=== PATIENT | male | born 1980 | race Caucasian/White ===

== ENCOUNTER 2018-01-10 16:19 | Emergency (ER) | payer BC ==
--- NOTE | 2018-01-10 16:31 | EDM.PDOC ---
<Maura Skinner - Last Filed: 01/10/18 21:18> ED HPI GENERAL MEDICAL PROBLEM - General Stated Complaint: CHEST PAINS Time Seen by Provider: 01/10/18 16:25 - History of Present Illness INITIAL COMMENTS - FREE TEXT/NARRATIVE: Please note this patient was seen prior to my arrival to the emergency department and I had no active involvement in his care. Disposition was planned and nursing proceeded appropriately per Dr. Acosta's instructions - Related Data Allergies Allergy/AdvReac Type Severity Reaction Status Date / Time No Known Allergies Allergy Verified 01/10/18 16:33 Home Meds: Home Meds Albuterol [Ventolin HFA] 2 puff INH Q4HR PRN #1 inhaler 01/10/18 [Rx] Aspirin 81 mg PO DAILY 01/10/18 [History] Azithromycin [Zithromax] 250 mg PO DAILY #6 tab 01/10/18 [Rx] Nitroglycerin 0.4 mg SL ASDIRECTED PRN #1 bottle 01/10/18 [Rx] Course - Vital Signs Last Recorded V/S: Last Vital Signs Temp 98 F 01/10/18 19:48 Pulse 100 01/10/18 19:48 Resp 17 01/10/18 19:48 BP 128/96 H 01/10/18 19:48 Pulse Ox 94 L 01/10/18 19:48 - Orders/Labs/Meds Orders: Active Orders 24 hr Category Date Time Status Cardiac Monitoring [RC] . DIRECTED Care 01/10/18 17:04 Active EKG Documentation Completion [RC] STAT Care 01/10/18 16:45 Active Pulse Oximetry [RC] ASDIRECTED Care 01/10/18 17:04 Active RT Aerosol Therapy [RC] ASDIRECTED Care 01/10/18 18:12 Active RT Aerosol Therapy [RC] ASDIRECTED Care 01/10/18 18:52 Active Chest 1V Frontal [CR] Stat Exams 01/10/18 17:22 Taken Saline Lock Insert [OM.PC] Stat Oth 01/10/18 16:34 Ordered Labs: Laboratory Tests 01/10/18 01/10/18 Range/Units 16:51 16:51 WBC 10.49 (4.0-11.0) K/uL RBC 5.24 (4.50-5.90) M/uL Hgb 15.7 (13.0-17.0) g/dL Hct 45.8 (38.0-50.0) % MCV 87.4 (80.0-98.0) fL MCH 30.0 (27.0-32.0) pg MCHC 34.3 (31.0-37.0) g/dL RDW Std Deviation 40.7 (28.0-62.0) fl RDW Coeff of Nyla 13 (11.0-15.0) % Plt Count 267 (150-400) K/uL MPV 11.30 (7.40-12.00) fL Neut % (Auto) 64.2 (48.0-80.0) % Lymph % (Auto) 24.5 (16.0-40.0) % [place] % (Auto) 9.2 (0.0-15.0) % Eos % (Auto) 1.7 (0.0-7.0) % Baso % (Auto) 0.4 (0.0-1.5) % Neut # (Auto) 6.7 H (1.4-5.7) K/uL Lymph # (Auto) 2.6 H (0.6-2.4) K/uL [place] # (Auto) 1.0 H (0.0-0.8) K/uL Eos # (Auto) 0.2 (0.0-0.7) K/uL Baso # (Auto) 0.0 (0.0-0.1) K/uL Nucleated RBC % 0.0 /100WBC Nucleated RBCs # 0 K/uL Sodium 137 (136-148) mmol/L Potassium 4.1 (3.5-5.1) mmol/L Chloride 104 (98-107) mmol/L Carbon Dioxide 21.8 (21.0-32.0) mmol/L BUN 11 (7.0-18.0) mg/dL Creatinine 1.1 (0.8-1.3) mg/dL Est Cr Clr Drug Dosing 94.02 mL/min Estimated GFR (MDRD) > 60.0 ml/min Glucose 194 H (74-106) mg/dL Calcium 8.9 (8.5-10.1) mg/dL Total Bilirubin 0.2 (0.2-1.0) mg/dL AST 23 (15-37) IU/L ALT 70 H (14-63) IU/L Alkaline Phosphatase 65 (46-116) U/L Troponin I < 0.050 (0.000-0.056) ng/mL Total Protein 7.3 (6.4-8.2) g/dL Albumin 4.0 (3.4-5.0) g/dL Globulin 3.3 (2.0-3.5) g/dL Albumin/Globulin Ratio 1.2 L (1.3-2.8) Meds: Medications Discontinued Medications Generic Name Dose Route Start Last Admin Trade Name Freq PRN Reason Stop Dose Admin Albuterol/Ipratropium 3 ml 01/10/18 18:12 01/10/18 18:18 Duoneb 3.0-0.5 Mg/3 Ml [facility] 01/10/18 18:13 3 ml ONETIME ONE Administration Albuterol/Ipratropium 3 ml 01/10/18 18:51 01/10/18 19:11 Duoneb 3.0-0.5 Mg/3 Ml [facility] 01/10/18 18:52 3 ml ONETIME ONE Administration Aspirin 324 mg 01/10/18 17:04 01/10/18 17:20 Aspirin PO 01/10/18 17:05 324 mg ONETIME ONE Administration Insulin Human Regular 6 unit 01/10/18 17:57 01/10/18 18:12 Novolin R IVPUSH 01/10/18 17:58 6 units ONETIME ONE Administration Protocol Nitroglycerin 0.4 mg 01/10/18 17:04 01/10/18 17:25 Nitrostat SL 0.4 mg Q5M PRN Administration Chest Pain Sodium Chloride 10 ml 01/10/18 16:34 01/10/18 17:21 Saline Flush FLUSH 10 ml ASDIRECTED PRN Administration Keep Vein Open Sodium Chloride 2.5 ml 01/10/18 16:34 01/10/18 17:21 Saline Flush FLUSH 2.5 ml ASDIRECTED PRN Administration Keep Vein Open Departure - Departure Time of Disposition: 19:31 Disposition: Home, Self-Care 01 Clinical Impression: Diabetes mellitus, new onset Acute bronchitis Qualifiers: Bronchitis organism: unspecified organism Qualified Code(s): J20.9 - Acute bronchitis, unspecified Chest pain Qualifiers: Chest pain type: unspecified Qualified Code(s): R07.9 - Chest pain, unspecified - Discharge Information Prescriptions: Albuterol [Ventolin HFA] 2 puff INH Q4HR PRN #1 inhaler PRN Reason: Shortness Of Breath Azithromycin [Zithromax] 250 mg PO DAILY #6 tab Nitroglycerin 0.4 mg SL ASDIRECTED PRN #1 bottle PRN Reason: Chest Pain Instructions: Acute Bronchitis, Adult, [id number], Nonspecific Chest Pain, [id number], Type 2 Diabetes Mellitus, Self Care, Adult, [id number] Referrals: PCP,None [Primary Care Provider] - Forms: ED Department Discharge Additional Instructions: The following information is given to patients seen in the emergency department who are being discharged to home. This information is to outline your options for follow-up care. We provide all patients seen in our emergency department with a follow-up referral. The need for follow-up, as well as the timing and circumstances, are variable depending upon the specifics of your emergency department visit. If you don't have a primary care physician on staff, we will provide you with a referral. We always advise you to contact your personal physician following an emergency department visit to inform them of the circumstance of the visit and for follow-up with them and/or the need for any referrals to a consulting specialist. The emergency department will also refer you to a specialist when appropriate. This referral assures that you have the opportunity for follow-up care with a specialist. All of these measure are taken in an effort to provide you with optimal care, which includes your follow-up. Under all circumstances we always encourage you to contact your private physician who remains a resource for coordinating your care. When calling for follow-up care, please make the office aware that this follow-up is from your recent emergency room visit. If for any reason you are refused follow-up, please contact the [facility] Emergency Department at and asked to speak to the emergency department charge nurse. Take Zithromax as directed, use nitroglycerin for chest pain as directed, take a baby aspirin daily follow up with primary care for further workup of diabetes. [facility] [address] [place] [id number] - My Orders Last 24 Hours: My Active Orders 01/10/18 16:34 Saline Lock Insert [OM.PC] Stat 01/10/18 16:45 EKG Documentation Completion [RC] STAT 01/10/18 17:04 Cardiac Monitoring [RC] . DIRECTED Pulse Oximetry [RC] ASDIRECTED 01/10/18 17:22 Chest 1V Frontal [CR] Stat 01/10/18 18:12 RT Aerosol Therapy [RC] ASDIRECTED 01/10/18 18:52 RT Aerosol Therapy [RC] ASDIRECTED - Assessment/Plan Last 24 Hours: My Active Orders 01/10/18 16:34 Saline Lock Insert [OM.PC] Stat 01/10/18 16:45 EKG Documentation Completion [RC] STAT 01/10/18 17:04 Cardiac Monitoring [RC] . DIRECTED Pulse Oximetry [RC] ASDIRECTED 01/10/18 17:22 Chest 1V Frontal [CR] Stat 01/10/18 18:12 RT Aerosol Therapy [RC] ASDIRECTED 01/10/18 18:52 RT Aerosol Therapy [RC] ASDIRECTED <Kourtney Acosta - Last Filed: 01/11/18 08:53> ED HPI GENERAL MEDICAL PROBLEM - General Source of Information: Reports: Patient History Limitations: Reports: No Limitations - History of Present Illness INITIAL COMMENTS - FREE TEXT/NARRATIVE: History of present illness: []Patient's had about a week of coughing, sweats, shortness of breath and chest tightness throughout his whole chest. Chest tightness has been constant for over a day Review of systems: As per history of present illness and below otherwise all systems reviewed and negative. Past medical history: As per history of present illness and as reviewed below otherwise noncontributory. Surgical history: As per history of present illness and as reviewed below otherwise noncontributory. Social history: No reported history of drug or alcohol abuse. Family history: As per history of present illness and as reviewed below otherwise noncontributory. Physical exam: General: Well developed, well nourished in NAD HEENT: Atraumatic, normocephalic, pupils reactive, negative for conjunctival pallor or scleral icterus, mucous membranes moist, throat clear, neck supple, nontender, trachea midline. Lungs: Clear to auscultation, breath sounds equal bilaterally, chest nontender. Heart: S1S2, regular, negative for clicks, rubs, or JVD. Abdomen: Soft, nondistended, nontender. Negative for masses or hepatosplenomegaly. Negative for costovertebral tenderness. Pelvis: Stable nontender. Genitourinary: Deferred. Rectal: Deferred. Extremities: Atraumatic, negative for cords or calf pain. Neurovascular unremarkable. Neuro: Awake, alert, oriented. Cranial nerves II through XII unremarkable. Cerebellum unremarkable. Motor and sensory unremarkable throughout. Exam nonfocal. Diagnostics: []CBC normal chemistry normal except for glucose which is 194, troponins negative Therapeutics: []Aspirin and nitroglycerin given with alleviation of his chest pressure Impression: []New onset diabetes, chest pain Plan: [] Definitive disposition and diagnosis as appropriate pending reevaluation and review of above. ED ROS GENERAL - Review of Systems Review Of Systems: See Below (See history of present illness) ED EXAM, GENERAL - Physical Exam Exam: See Below (See history of present illness) Course - Vital Signs Last Recorded V/S: Last Vital Signs Temp 98 F 01/10/18 19:48 Pulse 100 01/10/18 19:48 Resp 17 01/10/18 19:48 BP 128/96 H 01/10/18 19:48 Pulse Ox 94 L 01/10/18 19:48 - Orders/Labs/Meds Orders: Active Orders 24 hr Category Date Time Status Cardiac Monitoring [RC] . DIRECTED Care 01/10/18 17:04 Active EKG Documentation Completion [RC] STAT Care 01/10/18 16:45 Active Pulse Oximetry [RC] ASDIRECTED Care 01/10/18 17:04 Active RT Aerosol Therapy [RC] ASDIRECTED Care 01/10/18 18:12 Active RT Aerosol Therapy [RC] ASDIRECTED Care 01/10/18 18:52 Active Chest 1V Frontal [CR] Stat Exams 01/10/18 17:22 Taken Saline Lock Insert [OM.PC] Stat Oth 01/10/18 16:34 Ordered Labs: Laboratory Tests 01/10/18 01/10/18 Range/Units 16:51 16:51 WBC 10.49 (4.0-11.0) K/uL RBC 5.24 (4.50-5.90) M/uL Hgb 15.7 (13.0-17.0) g/dL Hct 45.8 (38.0-50.0) % MCV 87.4 (80.0-98.0) fL MCH 30.0 (27.0-32.0) pg MCHC 34.3 (31.0-37.0) g/dL RDW Std Deviation 40.7 (28.0-62.0) fl RDW Coeff of Nyla 13 (11.0-15.0) % Plt Count 267 (150-400) K/uL MPV 11.30 (7.40-12.00) fL Neut % (Auto) 64.2 (48.0-80.0) % Lymph % (Auto) 24.5 (16.0-40.0) % [place] % (Auto) 9.2 (0.0-15.0) % Eos % (Auto) 1.7 (0.0-7.0) % Baso % (Auto) 0.4 (0.0-1.5) % Neut # (Auto) 6.7 H (1.4-5.7) K/uL Lymph # (Auto) 2.6 H (0.6-2.4) K/uL [place] # (Auto) 1.0 H (0.0-0.8) K/uL Eos # (Auto) 0.2 (0.0-0.7) K/uL Baso # (Auto) 0.0 (0.0-0.1) K/uL Nucleated RBC % 0.0 /100WBC Nucleated RBCs # 0 K/uL Sodium 137 (136-148) mmol/L Potassium 4.1 (3.5-5.1) mmol/L Chloride 104 (98-107) mmol/L Carbon Dioxide 21.8 (21.0-32.0) mmol/L BUN 11 (7.0-18.0) mg/dL Creatinine 1.1 (0.8-1.3) mg/dL Est Cr Clr Drug Dosing 94.02 mL/min Estimated GFR (MDRD) > 60.0 ml/min Glucose 194 H (74-106) mg/dL Calcium 8.9 (8.5-10.1) mg/dL Total Bilirubin 0.2 (0.2-1.0) mg/dL AST 23 (15-37) IU/L ALT 70 H (14-63) IU/L Alkaline Phosphatase 65 (46-116) U/L Troponin I < 0.050 (0.000-0.056) ng/mL Total Protein 7.3 (6.4-8.2) g/dL Albumin 4.0 (3.4-5.0) g/dL Globulin 3.3 (2.0-3.5) g/dL Albumin/Globulin Ratio 1.2 L (1.3-2.8) Meds: Medications Discontinued Medications Generic Name Dose Route Start Last Admin Trade Name Freq PRN Reason Stop Dose Admin Albuterol/Ipratropium 3 ml 01/10/18 18:12 01/10/18 18:18 Duoneb 3.0-0.5 Mg/3 Ml [facility] 01/10/18 18:13 3 ml ONETIME ONE Administration Albuterol/Ipratropium 3 ml 01/10/18 18:51 01/10/18 19:11 Duoneb 3.0-0.5 Mg/3 Ml [facility] 01/10/18 18:52 3 ml ONETIME ONE Administration Aspirin 324 mg 01/10/18 17:04 01/10/18 17:20 Aspirin PO 01/10/18 17:05 324 mg ONETIME ONE Administration Insulin Human Regular 6 unit 01/10/18 17:57 01/10/18 18:12 Novolin R IVPUSH 01/10/18 17:58 6 units ONETIME ONE Administration Protocol Nitroglycerin 0.4 mg 01/10/18 17:04 01/10/18 17:25 Nitrostat SL 0.4 mg Q5M PRN Administration Chest Pain Sodium Chloride 10 ml 01/10/18 16:34 01/10/18 17:21 Saline Flush FLUSH 10 ml ASDIRECTED PRN Administration Keep Vein Open Sodium Chloride 2.5 ml 01/10/18 16:34 01/10/18 17:21 Saline Flush FLUSH 2.5 ml ASDIRECTED PRN Administration Keep Vein Open Departure - Departure Time of Disposition: 18:21 Condition: Good - My Orders Last 24 Hours: My Active Orders 01/10/18 16:34 Saline Lock Insert [OM.PC] Stat 01/10/18 16:45 EKG Documentation Completion [RC] STAT 01/10/18 17:04 Cardiac Monitoring [RC] . DIRECTED Pulse Oximetry [RC] ASDIRECTED 01/10/18 17:22 Chest 1V Frontal [CR] Stat 01/10/18 18:12 RT Aerosol Therapy [RC] ASDIRECTED 01/10/18 18:52 RT Aerosol Therapy [RC] ASDIRECTED - Assessment/Plan Last 24 Hours: My Active Orders 01/10/18 16:34 Saline Lock Insert [OM.PC] Stat 01/10/18 16:45 EKG Documentation Completion [RC] STAT 01/10/18 17:04 Cardiac Monitoring [RC] . DIRECTED Pulse Oximetry [RC] ASDIRECTED 01/10/18 17:22 Chest 1V Frontal [CR] Stat 01/10/18 18:12 RT Aerosol Therapy [RC] ASDIRECTED 01/10/18 18:52 RT Aerosol Therapy [RC] ASDIRECTED
[2018-01-10] MEDS ORDERED: Sodium Chloride 0.9% 2.5 ML Syringe FLUSH PRN (16:34)
[2018-01-10] MEDS ORDERED: Sodium Chloride 0.9% 10 ML Syringe FLUSH PRN (16:34)
[2018-01-10] MEDS ORDERED: Aspirin 81 MG Tab.Chew PO ONE (17:04)
[2018-01-10] MEDS: Nitroglycerin 0.4 MG Tab.SL SL PRN ×2 (17:20→17:25)
[2018-01-10 17:29] LABS: CHLORIDE,CL 104 mmol/L (98-107); SODIUM,NA 137 mmol/L (136-148)
[2018-01-10] MEDS ORDERED: Insulin Regular, Human 100 Units/ML 10 ML Vial IVPUSH ONE (17:57)
[2018-01-10] MEDS ORDERED: Albuterol/Ipratropium 3.0-0.5 MG/3 ML Neb Soln NEB ONE (18:12)
[2018-01-10] MEDS: Albuterol/Ipratropium 3.0-0.5 MG/3 ML Neb Soln NEB ONE (19:11)
--- NOTE | 2018-01-11 13:54 | CR ---
EXAM DATE: 01/10/18 PATIENT'S AGE: 37 Patient: NIMISHA DELGADO Facility: [place], [place] Site . Site : 1980 Study: XRay Chest [id number] 5:57:00 PM Ordering Physician: Dave Oconnell Final Report: Indication: Chest pain, shortness of breath Technique: Chest 1 view Comparison: None Findings/Impression: Cardiovascular and mediastinum: Heart size and vasculature are normal in caliber and appearance. Mediastinum is within normal limits. Lungs and pleural space: Lungs are clear. No sign of infiltrate or mass. No sign of pleural effusion. No pneumothorax. Bones and soft tissues: No significant findings. Dictated by Cecile Watson MD @ Jan 10 2018 6:32PM (Electronic Signature) Report Signed by Proxy. [facility] HE[facility] SYSTEMMelvina
== END 2018-01-10 19:48 | disposition home or self-care (01) ==
LOC: MW.ED 16:19
DX: J20.9 Acute bronchitis, unspecified (principal); E11.9 Type 2 diabetes mellitus without complications; R07.9 Chest pain, unspecified; Z79.82 Long term (current) use of aspirin; Z79.899 Other long term (current) drug therapy
CPT/HCPCS: 36415; 71045; 80053; 82962; 84484; 85025; 93005; 94640; 96374; 99285; A9270; 99284; J1815-GY